=== PATIENT | female | born 1985 | race American Indian/Alaskan Native ===

== ENCOUNTER 2017-12-14 20:16 | Inpatient (IN) | payer OTHER ==
--- NOTE | 2017-12-14 20:25 | ED PDOC ---
Arrival/HPI - General Historian: Patient <Gus Giordano - Last Filed: 12/14/17 23:29> <Korey Lopes - Last Filed: 12/16/17 08:04> - General Time Seen by Provider: 12/14/17 20:19 - History of Present Illness Narrative History of Present Illness (Text): 12/14/17 20:23 32 year old female, pmh including chronic asthma and chronic smoker, nkda, complaining of coughing/fever x 3 days with wheezing started today. Productive coughing, associated with wheezing, feels nauseous with an episode of vomiting with coughing prior to arrival but no abdominal pain, no palpitation , no chest pain, no fever or chills, no neck stiffness, no other medical or psychological complaints. (Gus Giordano) Past Medical History - Provider Review Nursing Documentation Reviewed: Yes <Gus Giordano - Last Filed: 12/14/17 23:29> Family/Social History - Physician Review Nursing Documentation Reviewed: Yes Family/Social History: Unknown Family HX <Gus Giordano - Last Filed: 12/14/17 23:29> Allergies/Home Meds <Gus Giordano - Last Filed: 12/14/17 23:29> <Korey Lopes - Last Filed: 12/16/17 08:04> Allergies/Adverse Reactions: Allergies No Known Allergies Allergy (Verified 12/14/17 20:24) Home Medications: Home Meds Medication Instructions Recorded Confirmed Albuterol HFA [Ventolin HFA 90 1 puff IH PRN PRN 12/15/17 12/15/17 mcg/actuation (8 g)] Review of Systems - Review of Systems Constitutional: absent: Fatigue, Fevers Eyes: absent: Vision Changes ENT: absent: Hearing Changes Respiratory: Cough, Sputum, Wheezing. absent: SOB Cardiovascular: absent: Chest Pain Gastrointestinal: Nausea, Vomiting. absent: Abdominal Pain, Diarrhea Musculoskeletal: absent: Arthralgias, Back Pain Skin: absent: Rash, Pruritis Neurological: absent: Headache Psychiatric: absent: Anxiety, Depression, Suicidal Ideation <Gus Giordano - Last Filed: 12/14/17 23:29> Physical Exam - Systems Exam Head: Present: Atraumatic, Normocephalic Pupils: Present: PERRL Extroacular Muscles: Present: EOMI Conjunctiva: Present: Normal Ears: Present: NORMAL TM, Normal Canal. No: Erythema Mouth: Present: Moist Mucous Membranes Nose (External): Present: Atraumatic. No: Abrasion, Contusion, Laceration, Lesions Nose (Internal): Present: Normal Inspection, No Active Bleeding. No: Rhinorrhea , Septal Hematoma, Epistaxis Neck: Present: Normal Range of Motion, Trachea Midline. No: Meningeal Signs, MIDLINE TENDERNESS, Paraspinal Tenderness, Lymphadenopathy Respiratory/Chest: Present: Wheezes (bilaterally), Decreased Breath Sounds ( bilaterally), Rhonchi (bilaterally), Tachypneic. No: Respiratory Distress, Accessory Muscle Use, Rales, Retracting, Tender to Palpation Cardiovascular: Present: Regular Rate and Rhythm, Normal S1, S2. No: Murmurs Abdomen: No: Tenderness, Distention, Peritoneal Signs, Rebound, Guarding Back: Present: Normal Inspection Upper Extremity: Present: Normal Inspection. No: Cyanosis, Edema Lower Extremity: Present: Normal Inspection. No: Edema Neurological: Present: GCS=15, CN II-XII Intact, Speech Normal Skin: Present: Warm, Dry, Normal Color. No: Rashes Psychiatric: Present: Alert, Oriented x 3, Normal Insight, Normal Concentration <Gus Giordano - Last Filed: 12/14/17 23:29> Vital Signs Temp Pulse Resp BP Pulse Ox 12/14/17 23:58 99.4 F 12/14/17 23:14 100.3 F H 12/14/17 23:00 100.3 F H 122 H 18 130/88 99 12/14/17 20:40 23 97 12/14/17 20:38 98.1 F 112 H 20 143/87 100 Medical Decision Making - RAD Interpretation Marketing Regional Consultant: Radiologist - EKG Interpretation Interpreted by ED Physician: Yes Type: 12 lead EKG Comparison: No previous EKG avail. <Gus Giordano - Last Filed: 12/14/17 23:29> <Korey Lopes - Last Filed: 12/16/17 08:04> ED Course and Treatment: 12/14/17 20:25 -labs/vbg -cxr -ekg -IVF solumedrol/duoneb/magnesium sulfate -observe and reassess 12/14/17 21:23 -code sepsis activated as she fits the criteria: tachycardia/tachpynea/lactic acid 2.3, IV rocephine and azithromycin ordered 12/14/17 22:16 - is negative -EKG: Sinus Tachycardia @ 113 BPM, no ST elevation or depression, no T wave inversion. -cxr No consolidation. -labs show no acute findings but K+ 3.3 (potassium chloride 20meq po ordered), Mg 1.6 (mgsulfate 2gm IV ordered) -Lactic acid 2.4 12/14/17 23:29 -Pt. is febrile 100.3F noted, tylenol 650mg po ordered. -Pt. completed 3 duonebx/125mg solumedrol and 2gm magnesium sulfate, wheezing decrease but still exist with not much symptomatically improved -I spoke to Dr. Mancilla and the medical technical writer about this case, agreed on this admission for observation (Gus Giordano) - Lab Interpretations Microbiology Results: Microbiology Results 12/14/17 21:00 Blood-Venous Blood Culture - Preliminary NO GROWTH AFTER 24 HOURS 12/14/17 20:40 Blood-Venous Blood Culture - Preliminary NO GROWTH AFTER 24 HOURS 12/15/17 01:00 Sputum Gram Stain - Final Lab Results: 12/15/17 06:00 12/15/17 06:00 Lab Results 12/15/17 06:00: Sodium 144, Chloride 108 H, Potassium 4.0, Carbon Dioxide 23, Anion Gap 18, BUN 7, Creatinine 0.7, Est GFR ( Amer) > 60, Est GFR (Non- Af Amer) > 60, Random Glucose 129 H, Calcium 9.0, Total Bilirubin 0.1 L, AST 31 , ALT 22, Alkaline Phosphatase 99, Total Protein 8.5 H, Albumin 3.9, Globulin 4.6, Albumin/Globulin Ratio 0.8 L 12/15/17 06:00: WBC 10.8 D, RBC 3.82, Hgb 11.4 L, Hct 34.9 L, MCV 91.4, MCH 29.8, MCHC 32.7, RDW 12.5, Plt Count 314, MPV 8.6, Gran % 96.3 H, Lymph % (Auto ) 3.1 L, Campbell % (Auto) 0.6 L, Eos % (Auto) 0.0 L, Baso % (Auto) 0.0, Gran # 10.39 H, Lymph # (Auto) 0.3 L, Campbell # (Auto) 0.1, Eos # (Auto) 0.0, Baso # (Auto ) 0.00, Neutrophils % (Manual) 95 H, Lymphocytes % (Manual) 3 L, Monocytes % ( Manual) 2, Platelet Evaluation Normal 12/15/17 00:30: pO2 164 H, VBG pH 7.35, VBG pCO2 40.0, VBG HCO3 22.1, VBG Total CO2 23.3, VBG O2 Sat (Calc) 100.0 H, VBG Base Excess -3.3 L, VBG Potassium 3.2 L , Sodium 139.0, Chloride 105.0, Glucose 134 H, Lactate 4.5 H*, FiO2 21.0, Venous Blood Potassium 3.2 L 12/14/17 21:00: TSH 3rd Generation 1.17 12/14/17 21:00: Procalcitonin 0.14 L 12/14/17 20:59: Sodium 141, Chloride 102, Potassium 3.3 L, Carbon Dioxide 27, Anion Gap 16, BUN 5 L, Creatinine 0.6 L, Est GFR ( Amer) > 60, Est GFR ( Non-Af Amer) > 60, Random Glucose 99, Calcium 9.1, Magnesium 1.6 L, Total Bilirubin 0.2, AST 31, ALT 16, Alkaline Phosphatase 110, Total Protein 9.0 H, Albumin 4.3, Globulin 4.6, Albumin/Globulin Ratio 0.9 L 12/14/17 20:59: pO2 36, VBG pH 7.32, VBG pCO2 58.0, VBG HCO3 29.9 H, VBG Total CO2 31.7 H, VBG O2 Sat (Calc) 68.8 H, VBG Base Excess 2.4 H, VBG Potassium 3.2 L , Sodium 139.0, Chloride 102.0, Glucose 97, Lactate 2.4 H, FiO2 21.0, Venous Blood Potassium 3.2 L 12/14/17 20:59: WBC 7.0, RBC 4.01, Hgb 12.4, Hct 36.2, MCV 90.3, MCH 30.9, MCHC 34.3, RDW 12.0, Plt Count 314, MPV 8.5, Gran % 75.7 H, Lymph % (Auto) 15.8 L, Campbell % (Auto) 5.4, Eos % (Auto) 2.8, Baso % (Auto) 0.3, Gran # 5.31, Lymph # ( Auto) 1.1 L, Campbell # (Auto) 0.4, Eos # (Auto) 0.2, Baso # (Auto) 0.02 - RAD Interpretation Radiology Orders: 12/14/17 20:34 CHEST PORTABLE [RAD] Stat Lungs: Unremarkable. No consolidation. Pleural space: Blunting of the right costophrenic angle could be due to pleural thickening versus small pleural effusion.. No pneumothorax. Heart: Unremarkable. No cardiomegaly. Mediastinum: Unremarkable. Bones/joints: Unremarkable. IMPRESSION: No consolidation. Thank you for allowing us to participate in the care of your patient. Dictated and Authenticated by: Hair Diaz MD 12/14/2017 10:10 PM Eastern Time ([place] & [place]) (Gus Giordano) - EKG Interpretation EKG Interpretation (Text): 12/14/17 20:52 EKG: Sinus Tachycardia @ 113 BPM, no ST elevation or depression, no T wave inversion. (Gus Giordano) - Medication Orders Current Medication Orders: Acetaminophen (Tylenol 325mg Tab) 650 mg PO Q6H PRN PRN Reason: Fever >100.4 F Last Admin: 12/16/17 05:33 Dose: 650 mg MAR Pain/Vitals Document 12/16/17 05:33 FDE (Rec: 12/16/17 05:33 FDE [id number]) Pain Reassessment Is This A Pain ReAssessment? Yes Sleep Is patient sleeping during reassessment? No Presence of Pain Presence of Pain No Amlodipine Besylate (Norvasc) 2.5 mg PO DAILY [facility] Last Admin: 12/15/17 15:00 Dose: 2.5 mg MAR Blood Pressure Document 12/15/17 15:00 [email or web address] (Rec: 12/15/17 15:00 [id number]) Blood Pressure Blood Pressure (100/60-150/90) 158/109 Guaifenesin/Dextromethorphan (Mucinex-Dm 600-30 Mg) 1 tab PO BID [facility] Last Admin: 12/15/17 17:40 Dose: 1 tab Heparin Sodium (Porcine) (Heparin) 5,000 units SC Q12 [facility] PRN Reason: Protocol Last Admin: 12/15/17 21:24 Dose: 5,000 units Subcutaneous Administrations Document 12/15/17 21:24 FDE (Rec: 12/15/17 21:24 FDE [id number]) Charges for Administration # of Subcutaneous Administrations 1 Ceftriaxone Sodium (Rocephin 1 Gram Ivpb) 1 gm in 100 mls @ 100 mls/hr IVPB DAILY JOEL PRN Reason: Protocol Last Admin: 12/15/17 09:26 Dose: 100 mls/hr eMAR Start Stop Document 12/15/17 09:26 [facility] (Rec: 12/15/17 09:26 [id number] Intravenous Solution Start Date 12/15/17 Start Time 09:26 Azithromycin (Zithromax 500mg In Ns) 500 mg in 250 mls @ 167 mls/hr IVPB DAILY JOEL PRN Reason: Protocol Last Admin: 12/15/17 11:16 Dose: 167 mls/hr eMAR Start Stop Document 12/15/17 11:16 [facility] (Rec: 12/15/17 11:16 [id number] Intravenous Solution Start Date 12/15/17 Start Time 11:16 Sodium Chloride (Sodium Chloride 0.9%) 1,000 mls @ 125 mls/hr IV .Q8H [facility] Last Admin: 12/15/17 09:25 Dose: Levalbuterol HCl (Xopenex) 1.25 mg IH [id number] PRN PRN Reason: Shortness of Breath Last Admin: 12/15/17 06:18 Dose: 1.25 mg Levalbuterol HCl (Xopenex) 0.63 mg IH [id number] [facility] Last Admin: 12/16/17 07:29 Dose: 0.63 mg Levalbuterol HCl (Xopenex) 0.63 mg IH Q4H PRN PRN Reason: Shortness of Breath Methylprednisolone (Solu-Medrol) 40 mg IVP DAILY [facility] Last Admin: 12/15/17 09:25 Dose: 40 mg IVP Administration Document 12/15/17 09:25 [facility] (Rec: 12/15/17 09:[id number]) Charges for Administration # of IVP Administrations 1 Pantoprazole Sodium (Protonix Ec Tab) 40 mg PO ACB JOEL Discontinued Medications Acetaminophen (Tylenol 325mg Tab) 650 mg PO STAT STA Stop: 12/14/17 23:08 Last Admin: 12/14/17 23:14 Dose: 650 mg MAR Pain/Vitals Document 12/14/17 23:14 RD (Rec: 12/14/17 23:14 RD [id number]) Pain Reassessment Is This A Pain ReAssessment? No Sleep Is patient sleeping during reassessment? No Presence of Pain Presence of Pain Yes Location Pain Location Body Systems Architecture Analyst Vitals Temperature (97.6 F-99.6 F) 100.3 F Temperature Source Rectal Albuterol/Ipratropium (Duoneb 3 Mg/0.5 Mg (3 Ml) Ud) 3 ml IH Q15M JOEL Stop: 12/14/17 21:16 Last Admin: 12/14/17 21:00 Dose: 3 ml Amlodipine Besylate (Norvasc) 5 mg PO STAT STA Stop: 12/15/17 17:31 Last Admin: 12/15/17 17:39 Dose: 5 mg MAR Pulse and Blood Pressure Document 12/15/17 17:39 [facility] (Rec: 12/15/17 17:40 [id number] Blood Pressure Blood Pressure (100/60-150/90) 160/93 Guaifenesin/Dextromethorphan (Robitussin Dm) 10 ml PO STAT STA Stop: 12/15/17 21:07 Last Admin: 12/15/17 21:24 Dose: 10 ml Sodium Chloride (Sodium Chloride 0.9%) 1,000 mls @ 999 mls/hr IV .Q1H1M STA Stop: 12/14/17 21:34 Last Admin: 12/14/17 20:40 Dose: 999 mls/hr eMAR Start Stop Document 12/14/17 20:40 RD (Rec: 12/14/17 20:58 RD [id number]) Intravenous Solution Start Date 12/14/17 Start Time 20:40 End Date 12/14/17 End time 21:40 Total Infusion Time 60 Azithromycin (Zithromax 500mg In Ns) 500 mg in 250 mls @ 167 mls/hr IVPB STAT STA PRN Reason: Protocol Stop: 12/14/17 22:48 Last Admin: 12/14/17 22:40 Dose: 167 mls/hr eMAR Start Stop Document 12/14/17 22:40 RD (Rec: 12/14/17 22:40 RD [id number]) Intravenous Solution Start Date 12/14/17 Start Time 22:40 End Date 12/15/17 End time 00:10 Total Infusion Time 90 Magnesium Sulfate (Magnesium Sulfate 2 Gm/50 Ml Water) 2 gm in 50 mls @ 50 mls/ hr IVPB ONCE ONE Stop: 12/14/17 22:26 Last Admin: 12/14/17 21:40 Dose: 50 mls/hr eMAR Start Stop Document 12/14/17 21:40 RD (Rec: 12/14/17 21:51 RD [id number]) Intravenous Solution Start Date 12/14/17 Start Time 21:40 End Date 12/14/17 End time 22:40 Total Infusion Time 60 Ceftriaxone Sodium (Rocephin 1 Gram Ivpb) 1 gm in 100 mls @ 100 mls/hr IVPB DAILY JOEL PRN Reason: Protocol Ceftriaxone Sodium (Rocephin 1 Gram Ivpb) 1 gm in 100 mls @ 100 mls/hr IVPB STAT STA PRN Reason: Protocol Stop: 12/14/17 22:32 Last Admin: 12/14/17 21:40 Dose: 100 mls/hr eMAR Start Stop Document 12/14/17 21:40 RD (Rec: 12/14/17 21:50 RD [id number]) Intravenous Solution Start Date 12/14/17 Start Time 21:40 End Date 12/14/17 End time 22:40 Total Infusion Time 60 Lactated Ringer's (Lactated Ringer's) 1,000 mls @ 999 mls/hr IV .Q1H1M JOEL Stop: 12/14/17 23:30 Last Admin: 12/14/17 22:39 Dose: 999 mls/hr eMAR Start Stop Document 12/14/17 22:39 RD (Rec: 12/14/17 22:39 RD [id number]) Intravenous Solution Start Date 12/14/17 Start Time 22:39 End Date 12/14/17 End time 23:39 Total Infusion Time 60 Sodium Chloride 1,000 ml/ IV (SUPPLIES) 1,000 mls @ 4,164 mls/hr IV ONCE ONE PRN Reason: 60 ML/KG/HR Stop: 12/15/17 13:19 Last Admin: 12/15/17 13:53 Dose: 4,164 mls/hr eMAR Start Stop Document 12/15/17 13:53 [facility] (Rec: 12/15/17 13:53 [facility] [id number]- [facility]) Intravenous Solution Start Date 12/15/17 Start Time 13:53 Levalbuterol HCl (Xopenex) 1.25 mg IH STAT STA Stop: 12/14/17 21:43 Last Admin: 12/14/17 22:05 Dose: 1.25 mg Methylprednisolone (Solu-Medrol) 125 mg IVP STAT STA Stop: 12/14/17 20:35 Last Admin: 12/14/17 20:50 Dose: 125 mg IVP Administration Document 12/14/17 20:50 RD (Rec: 12/14/17 20:58 RD [id number]) Charges for Administration # of IVP Administrations 1 Ondansetron HCl (Zofran Inj) 4 mg IVP STAT STA Stop: 12/14/17 21:33 Last Admin: 12/14/17 21:38 Dose: 4 mg IVP Administration Document 12/14/17 21:38 RD (Rec: 12/14/17 21:38 RD [id number]) Charges for Administration # of IVP Administrations 1 Pantoprazole Sodium (Protonix Inj) 40 mg IVP DAILY [facility] Last Admin: 12/15/17 09:23 Dose: 40 mg IVP Administration Document 12/15/17 09:23 [facility] (Rec: 12/15/17 09:[address]-[id number]- PC) Charges for Administration # of IVP Administrations 1 Potassium Chloride (K-Dur 20 Meq Er Tab) 20 meq PO STAT STA Stop: 12/14/17 22:16 Last Admin: 12/14/17 22:39 Dose: 20 meq Potassium Chloride (K-Dur 20 Meq Er Tab) 20 meq PO ONCE ONE Stop: 12/16/17 06:59 Last Admin: 12/16/17 07:07 Dose: 20 meq - PA / MOTOR BUILDER ASSEMBLER / Resident Statement MARGARITA has reviewed & agrees with the documentation as recorded. MARGARITA has examined the patient and agrees with the treatment plan. <Gus Giordano - Last Filed: 12/14/17 23:29> - PA / MOTOR BUILDER ASSEMBLER / Resident Statement MARGARITA has reviewed & agrees with the documentation as recorded. <Korey Lopes - Last Filed: 12/16/17 08:04> Disposition/Present on Arrival - Present on Arrival Any Indicators Present on Arrival: No History of DVT/PE: No History of Uncontrolled Diabetes: No Urinary Catheter: No History of Decub. Ulcer: No - Disposition Have Diagnosis and Disposition been Completed?: Yes Disposition Time: 23:50 Patient Plan: Admission <Gus Giordano - Last Filed: 12/14/17 23:29> <Korey Lopes - Last Filed: 12/16/17 08:04> - Disposition Diagnosis: Bronchitis, Status asthmaticus, Sepsis Disposition: HOSPITALIZED Patient Problems: Current Active Problems Problem Status Onset Bronchitis Acute Sepsis Acute Status asthmaticus Acute Condition: FAIR
[2017-12-14] MEDS: Albuterol-Ipratrop 3 mg / 0.5 (3 ml) UD IH SCH ×3 (20:30→21:00)
[2017-12-14] MEDS ORDERED: Sodium Chloride 0.9% 1,000 ML IV STA (20:34)
[2017-12-14 21:09] LABS: VENOUS BLOOD GAS BASE EXCESS 2.4 mmol/L (0.0-2.0); VENOUS BLOOD GAS PO2 36 mm/Hg (30-55); VENOUS BLOOD PH 7.32 (7.32-7.43)
[2017-12-14 21:15] LABS: ALB/GLOB RATIO 0.9 (1.1-1.8)
[2017-12-14] MEDS ORDERED: cefTRIAXone 1 gm 1 GM/100 ML BAG IVPB STA ×2 (21:19→21:33)
[2017-12-14] MEDS ORDERED: Azithromycin 500MG/NS 250ml 500 MG/250 ML BAG IVPB STA (21:19)
[2017-12-14 21:20] LABS: ALBUMIN 4.3 g/dL (3.0-4.8); ALT/SGPT 16 U/L (7-56); AST/SGOT 31 U/L (14-36); BLOOD UREA NITROGEN 5 mg/dL (7-21); CALCIUM 9.1 mg/dL (8.4-10.5); GFR AFRICAN-AMERICAN > 60; GFR NON-AFRICAN AMERICAN > 60
[2017-12-14 21:27] LABS: BASO # 0.02 K/mm3 (0.0-2.0); BASO % 0.3 % (0.0-3.0); EOS # 0.2 (0.0-0.7); EOS % 2.8 % (1.5-5.0); GRAN # 5.31 (1.4-6.5); GRAN % 75.7 % (50.0-68.0); HEMOGLOBIN 12.4 g/dL (12.0-16.0); LYMPH # 1.1 (1.2-3.4); LYMPH % 15.8 % (22.0-35.0); MEAN CELL VOLUME 90.3 fl (80.0-105.0); MEAN CORPUSCULAR HEMOGLOBIN 30.9 pg (25.0-35.0); MEAN CORPUSCULAR HGB CONC 34.3 g/dl (31.0-37.0); MEAN PLATELET VOLUME 8.5 fl (7.0-11.0); MONO # 0.4 (0.1-0.6); MONO % 5.4 % (1.0-6.0); RBC 4.01 10^6/uL (3.5-6.1)
[2017-12-14] MEDS ORDERED: Magnesium Sulfate 2 gm/50 ml 2 GM/50 ML BAG IVPB ONE (21:27)
[2017-12-14] MEDS ORDERED: Albuterol-Ipratrop 3 mg / 0.5 (3 ml) UD IH SCH (21:30)
[2017-12-14] MEDS ORDERED: Levalbuterol 1.25 MG/3 ML Inhal Soln UD IH STA (21:42)
[2017-12-14] MEDS ORDERED: Potassium Chloride 20 mEq ER Tab PO STA (22:15)
[2017-12-14] MEDS ORDERED: Lactated Ringer's 1,000 ML IV SCH (22:30)
--- NOTE | 2017-12-15 00:02 | CP.PCM.HP ---
History of Present Illness - History of Present Illness History of Present Illness: 32 year old female with a past medical history of asthma and seizures comes in today complaining of shortness of breath and wheezing that began this morning. The patient states she was resting when she began to get short of breath. She reports taking her albuterol pump with no improvement in symptoms. Patient states she has to use her albuterol pump daily and wake up from her sleep nightly with shortness of breath. She denies any chest pain, shortness of breath, fevers, chills, nausea, vomiting, dizziness, changes in vision, syncopal episodes or any other complaints. Patient alerted me prior to questioning her to not ask certain questions in front of her boyfriend. PMD: Denies Past medical history: Asthma, seizures Medications: Albuterol pump Allergies: Denies Surgeries: C section Present on Admission - Present on Admission Any Indicators Present on Admission: No Review of Systems - Constitutional Constitutional: absent: Daytime Sleepiness, Frequent Falls, Headache, Snoring - EENT Eyes: absent: Blurred Vision, Loss of Peripheral Vision Ears: absent: Ear Discharge, Dizziness Nose/Mouth/Throat: absent: Nose Pain, Bleeding Gums, Mouth Pain, Facial Pain - Cardiovascular Cardiovascular: absent: Chest Pain, Claudication, Irregular Heart Rhythm, Palpitations, Pedal Edema, Syncope - Respiratory Respiratory: Cough, Wheezing. absent: Dyspnea, Hemoptysis, Snoring, Stridor, Pain on Inspiration - Gastrointestinal Gastrointestinal: absent: Belching, Diarrhea, Fecal Incontinence, Loose Stools, Vomiting - Menstruation Menstruation: absent: Menses Variable - Neurological Neurological: absent: Abnormal Hearing, Behavioral Changes, Dizziness, Lack of Coordination, Loss of Vision, Radicular Pain, Restless Legs, Tingling, Tremor, Vertigo - Psychiatric Psychiatric: absent: Anhedonia, Anxiety, Depression, Difficulty Concentrating, Hopelessness, Panic Attacks - Endocrine Endocrine: absent: Polydipsia, Polyphagia, Polyuria - Hematologic/Lymphatic Hematologic: absent: Easy Bleeding, Easy Bruising Past Patient History - Past Social History Smoking Status: Heavy Smoker > 10 Cigarettes Daily - PULMONARY Hx Asthma: Yes - PSYCHIATRIC Hx Substance Use: No - ANESTHESIA Hx Anesthesia: Yes Hx Anesthesia Reactions: No Hx Malignant Hyperthermia: No Meds Allergies/Adverse Reactions: Allergies Allergy/AdvReac Type Severity Reaction Status Date / Time No Known Allergies Allergy Verified 12/14/17 20:24 Physical Exam - Head Exam Head Exam: ATRAUMATIC, NORMAL INSPECTION, NORMOCEPHALIC - Eye Exam Eye Exam: EOMI, Normal appearance, PERRL Pupil Exam: NORMAL ACCOMODATION, PERRL - ENT Exam ENT Exam: Mucous Membranes Moist, Normal Oropharynx - Neck Exam Neck exam: Negative for: Lymphadenopathy, Meningismus - Respiratory Exam Respiratory Exam: Wheezes, NORMAL BREATHING PATTERN. absent: Prolonged Expiratory Phase, Rales, Respiratory Distress - Cardiovascular Exam Cardiovascular Exam: REGULAR RHYTHM, +S1, +S2 - GI/Abdominal Exam GI & Abdominal Exam: Normal Bowel Sounds, Soft. absent: Organomegaly, Tenderness - Extremities Exam Extremities exam: Positive for: full ROM, normal inspection. Negative for: joint swelling, pedal edema - Back Exam Back exam: NORMAL INSPECTION. absent: CVA tenderness (R), paraspinal tenderness - Neurological Exam Neurological exam: Alert, CN II-XII Intact, Oriented x3 - Psychiatric Exam Psychiatric exam: Normal Affect, Normal Mood - Skin Skin Exam: Dry, Intact, Normal Color Results - Vital Signs Recent Vital Signs: Last Vital Signs Temp 99.4 F 12/14/17 23:58 Pulse 122 H 12/14/17 23:00 Resp 18 12/14/17 23:00 BP 130/88 12/14/17 23:00 Pulse Ox 99 12/14/17 23:00 - Labs Result Diagrams: 12/15/17 06:00 12/15/17 06:00 Assessment & Plan - Assessment and Plan (Free Text) Assessment: 32 year old female with a past medical history of asthma and seizures admitted for status asthmaticus. Plan: 1. Asthma exacerbation -Duonebs -IV solumedrol 2.Septic 2/2 to ?Pna -Code sepsis called in the E.D. -Patient reports cough and phlegm production -Motley cultures. Will f/u with results. -Pro macario ordered. Will f/u with results. -Tylenol 650mg PRN for fever >100.4 -IV Zithromax and Rocephin -IV fluids 3. hx of seizures -Patient reports over 8 years without having a seizure -Currently not on medication regimen. -Will monitor PPX -Heparin -Protonix Case discussed with Dr. Mancilla. Yariel Castano PGY-1
[2017-12-15 01:06] LABS: VENOUS BLOOD GAS BASE EXCESS -3.3 mmol/L (0.0-2.0); VENOUS BLOOD GAS PO2 164 mm/Hg (30-55); VENOUS BLOOD PH 7.35 (7.32-7.43)
[2017-12-15] MEDS: Sodium Chloride 0.9% 1,000 ML IV SCH ×2 (01:15→09:25)
[2017-12-15] MEDS: Levalbuterol 1.25 MG/3 ML Inhal Soln UD IH PRN ×2 (01:18→06:18)
[2017-12-15 01:46] VITALS: BMI 30.7
[2017-12-15] MEDS ORDERED: Albuterol-Ipratrop 3 mg / 0.5 (3 ml) UD IH SCH (03:30)
--- NOTE | 2017-12-15 05:22 | PCM.SEPTIC ---
Sepsis Progress Note - Reassessment Type Date of Evaluation: 12/15/17 Time of Evaluation: 04:00 Reassessment Type: Non-invasive reassessment - Non Invasive Reassessment Were the most recent vital sign reviewed: Yes Vital Sign (Latest): Temp Pulse Resp BP Pulse Ox 98.9 F 104 H 22 131/79 98 12/15/17 00:47 12/15/17 04:48 12/15/17 00:47 12/15/17 00:47 12/15/17 00:18 Cardiovascular: Yes: Regular Rate, Rhythm, Tachycardia. No: Bradycardia, Other Respiratory: No: Decreased Breath Sounds, Stridor Capillary Refill: Normal (Less than 2 sec) Skin: Normal Color, Warm <Yariel Castano - Last Filed: 12/15/17 05:20> - Non Invasive Reassessment Vital Sign (Latest): Temp Pulse Resp BP Pulse Ox 98.1 F 105 H 20 143/88 96 12/15/17 05:53 12/15/17 05:53 12/15/17 05:53 12/15/17 05:53 12/15/17 05:53 <Ayde Mancilla - Last Filed: 12/15/17 06:12> Attending/Attestation - Attestation I have personally seen and examined this patient.: Yes I have fully participated in the care of the patient.: Yes I have reviewed all pertinent clinical information, including history, physical exam and plan: Yes Notes (Text): 12/15/17 06:12 Patient was seen when she was in bed # 18 in the ER. Agree with history, physical examination, assessment and plan. <Ayde Mancilla - Last Filed: 12/15/17 06:12>
[2017-12-15 05:54] VITALS: RESP 20
[2017-12-15 07:03] LABS: GRAN # 10.39 (1.4-6.5); GRAN % 96.3 % (50.0-68.0); HEMOGLOBIN 11.4 g/dL (12.0-16.0); LYMPH # 0.3 (1.2-3.4); LYMPH % 3.1 % (22.0-35.0); MEAN CELL VOLUME 91.4 fl (80.0-105.0); MEAN CORPUSCULAR HEMOGLOBIN 29.8 pg (25.0-35.0); MEAN CORPUSCULAR HGB CONC 32.7 g/dl (31.0-37.0); MEAN PLATELET VOLUME 8.6 fl (7.0-11.0); MONO # 0.1 (0.1-0.6); MONO % 0.6 % (1.0-6.0); PLATELET COUNT 314 10^3/uL (120.0-450.0); RBC 3.82 10^6/uL (3.5-6.1); RED CELL DISTRIBUTION WIDTH 12.5 % (11.5-14.5); WHITE BLOOD COUNT 10.8 10^3/ul (4.5-11.0)
[2017-12-15 07:13] LABS: ALB/GLOB RATIO 0.8 (1.1-1.8); ALBUMIN 3.9 g/dL (3.0-4.8); ALT/SGPT 22 U/L (7-56); AST/SGOT 31 U/L (14-36); BLOOD UREA NITROGEN 7 mg/dL (7-21); GFR AFRICAN-AMERICAN > 60; GFR NON-AFRICAN AMERICAN > 60
[2017-12-15 08:00] LABS: LYMPHOCYTE 3 % (22.0-35.0); MONOCYTE 2 % (1.0-6.0); NEUTROPHIL 95 % (50.0-70.0); PLATELET ESTIMATE NORMAL (NORMAL)
--- NOTE | 2017-12-15 09:12 | RAD ---
HISTORY: medical clearance COMPARISON: No prior. FINDINGS: LUNGS: No active pulmonary disease. PLEURA: No significant pleural effusion identified, no pneumothorax apparent. CARDIOVASCULAR: Normal. OSSEOUS STRUCTURES: No significant abnormalities. VISUALIZED UPPER ABDOMEN: Normal. OTHER FINDINGS: The report concurs with the preliminary [facility] report IMPRESSION: No active disease.
[2017-12-15] MEDS: guaiFENesin-DM 600-30 mg ER Tab PO SCH ×2 (09:23→17:40)
[2017-12-15] MEDS: MethylPREDNISolone 40 mg Vial IVP SCH (09:25)
[2017-12-15] MEDS: cefTRIAXone 1 gm 1 GM/100 ML BAG IVPB SCH (09:26)
[2017-12-15] MEDS ORDERED: cefTRIAXone 1 gm 1 GM/100 ML BAG IVPB SCH (10:00)
[2017-12-15] MEDS ORDERED: Levalbuterol 0.63 MG/3 ML Inhal Soln UD IH PRN (10:28)
[2017-12-15] MEDS: Azithromycin 500MG/NS 250ml 500 MG/250 ML BAG IVPB SCH (11:16)
[2017-12-15] MEDS: Levalbuterol 0.63 MG/3 ML Inhal Soln UD IH SCH ×2 (13:36→19:47)
--- NOTE | 2017-12-15 16:37 | CARD ---
APPROVED REPORT EKG Measurement Heart [id number] PA [id number] <Conclusion> Sinus tachycardia Otherwise normal ECG
[2017-12-15] MEDS ORDERED: guaiFENesin DM 200 mg-20 mg/10 ml UD PO STA (21:06)
[2017-12-15 23:50] VITALS: O2SAT 95
[2017-12-16] MEDS: Levalbuterol 0.63 MG/3 ML Inhal Soln UD IH SCH ×2 (01:52→07:29)
[2017-12-16 06:25] LABS: EOS % 0.3 % (1.5-5.0); GRAN # 7.93 (1.4-6.5); GRAN % 78.4 % (50.0-68.0); HEMOGLOBIN 10.5 g/dL (12.0-16.0); LYMPH # 1.4 (1.2-3.4); MEAN CELL VOLUME 91.8 fl (80.0-105.0); MEAN CORPUSCULAR HEMOGLOBIN 29.6 pg (25.0-35.0); MEAN CORPUSCULAR HGB CONC 32.2 g/dl (31.0-37.0); MEAN PLATELET VOLUME 8.6 fl (7.0-11.0); MONO # 0.7 (0.1-0.6); MONO % 7.3 % (1.0-6.0); RBC 3.55 10^6/uL (3.5-6.1); RED CELL DISTRIBUTION WIDTH 12.7 % (11.5-14.5); WHITE BLOOD COUNT 10.1 10^3/ul (4.5-11.0)
[2017-12-16 06:36] LABS: ALB/GLOB RATIO 0.9 (1.1-1.8); ALBUMIN 3.7 g/dL (3.0-4.8); ALT/SGPT 20 U/L (7-56); AST/SGOT 28 U/L (14-36); BLOOD UREA NITROGEN 8 mg/dL (7-21); GFR AFRICAN-AMERICAN > 60; GFR NON-AFRICAN AMERICAN > 60
[2017-12-16] MEDS ORDERED: Potassium Chloride 20 mEq ER Tab PO ONE (06:58)
[2017-12-16] MEDS ORDERED: Pantoprazole 40 mg EC Tab PO SCH (07:30)
[2017-12-16 08:08] LABS: VENOUS BLOOD GAS BASE EXCESS 6.4 mmol/L (0.0-2.0); VENOUS BLOOD GAS PO2 75 mm/Hg (30-55); VENOUS BLOOD PH 7.48 (7.32-7.43)
[2017-12-16] MEDS: guaiFENesin-DM 600-30 mg ER Tab PO SCH (10:05)
[2017-12-16] MEDS: MethylPREDNISolone 40 mg Vial IVP SCH (10:05)
[2017-12-16] MEDS: Azithromycin 500MG/NS 250ml 500 MG/250 ML BAG IVPB SCH (10:06)
[2017-12-16] MEDS: cefTRIAXone 1 gm 1 GM/100 ML BAG IVPB SCH (10:06)
[2017-12-16 12:31] VITALS: BP 142/102; TEMP 97.9
[2017-12-16 14:30] VITALS: PULSE 75
--- NOTE | 2017-12-16 14:41 | CP.PCM.DIS ---
<RachelleSarkis - Last Filed: 12/16/17 14:41> Provider - Provider Date of Admission: 12/15/17 13:53 Attending physician: Cheng Peng MD Primary care physician: NO FAMILY PROVIDER Time Spent in preparation of Discharge (in minutes): 35 Diagnosis - Discharge Diagnosis (1) Bronchitis Status: Acute (2) Sepsis Status: Resolved (3) Status asthmaticus Status: Resolved Hospital Course - Lab Results Lab Results: Most Recent Lab Values WBC 10.1 10^3/ul (4.5-11.0) 12/16/17 05:45 RBC 3.55 10^6/uL (3.5-6.1) 12/16/17 05:45 Hgb 10.5 g/dL (12.0-16.0) L 12/16/17 05:45 Hct 32.6 % (36.0-48.0) L 12/16/17 05:45 MCV 91.8 fl (80.0-105.0) 12/16/17 05:45 MCH 29.6 pg (25.0-35.0) 12/16/17 05:45 MCHC 32.2 g/dl (31.0-37.0) 12/16/17 05:45 RDW 12.7 % (11.5-14.5) 12/16/17 05:45 Plt Count 298 10^3/uL (120.0-450.0) 12/16/17 05:45 MPV 8.6 fl (7.0-11.0) 12/16/17 05:45 Gran % 78.4 % (50.0-68.0) H 12/16/17 05:45 Lymph % (Auto) 14.0 % (22.0-35.0) L 12/16/17 05:45 Bates % (Auto) 7.3 % (1.0-6.0) H 12/16/17 05:45 Eos % (Auto) 0.3 % (1.5-5.0) L 12/16/17 05:45 Baso % (Auto) 0.0 % (0.0-3.0) 12/16/17 05:45 Gran # 7.93 (1.4-6.5) H 12/16/17 05:45 Lymph # (Auto) 1.4 (1.2-3.4) 12/16/17 05:45 Bates # (Auto) 0.7 (0.1-0.6) H 12/16/17 05:45 Eos # (Auto) 0.0 (0.0-0.7) 12/16/17 05:45 Baso # (Auto) 0.00 K/mm3 (0.0-2.0) 12/16/17 05:45 Neutrophils % (Manual) 95 % (50.0-70.0) H 12/15/17 06:00 Lymphocytes % (Manual) 3 % (22.0-35.0) L 12/15/17 06:00 Monocytes % (Manual) 2 % (1.0-6.0) 12/15/17 06:00 Platelet Evaluation Normal (NORMAL) 12/15/17 06:00 pO2 75 mm/Hg (30-55) H 12/16/17 07:40 VBG pH 7.48 (7.32-7.43) H 12/16/17 07:40 VBG pCO2 41.0 (40-60) 12/16/17 07:40 VBG HCO3 30.5 mmol/l (21-28) H 12/16/17 07:40 VBG Total CO2 31.8 mmol.L (22-28) H 12/16/17 07:40 VBG O2 Sat (Calc) 98.1 % (40-65) H 12/16/17 07:40 VBG Base Excess 6.4 mmol/L (0.0-2.0) H 12/16/17 07:40 VBG Potassium 3.6 mmol/L (3.6-5.2) 12/16/17 07:40 Sodium 139.0 mmol/L (132-148) 12/16/17 07:40 Chloride 106.0 mmol/L (98-107) 12/16/17 07:40 Glucose 105 mg/dl (65-105) 12/16/17 07:40 Lactate 1.0 mmol/L (0.7-2.1) 12/16/17 07:40 FiO2 21.0 % 12/16/17 07:40 Sodium 141 mmol/L (132-148) 12/16/17 05:45 Potassium 3.4 mmol/L (3.6-5.0) L 12/16/17 05:45 Chloride 104 mmol/L (98-107) 12/16/17 05:45 Carbon Dioxide 27 mmol/L (21-33) 12/16/17 05:45 Anion Gap 14 (10-20) 12/16/17 05:45 BUN 8 mg/dL (7-21) 12/16/17 05:45 Creatinine 0.7 mg/dl (0.7-1.2) 12/16/17 05:45 Est GFR ( Amer) > 60 12/16/17 05:45 Est GFR (Non-Af Amer) > 60 12/16/17 05:45 Random Glucose 139 mg/dL (70-110) H 12/16/17 05:45 Lactic Acid 0.8 mmol/L (0.7-2.1) 12/15/17 16:30 Calcium 9.0 mg/dL (8.4-10.5) 12/16/17 05:45 Magnesium 1.6 mg/dL (1.7-2.2) L 12/14/17 20:59 Total Bilirubin 0.1 mg/dL (0.2-1.3) L 12/16/17 05:45 AST 28 U/L (14-36) 12/16/17 05:45 ALT 20 U/L (7-56) 12/16/17 05:45 Alkaline Phosphatase 97 U/L (38-126) 12/16/17 05:45 Total Protein 7.9 g/dL (5.8-8.3) 12/16/17 05:45 Albumin 3.7 g/dL (3.0-4.8) 12/16/17 05:45 Globulin 4.3 gm/dL 12/16/17 05:45 Albumin/Globulin Ratio 0.9 (1.1-1.8) L 12/16/17 05:45 Procalcitonin 0.09 NG/ML (0.19-0.49) L 12/15/17 16:30 TSH 3rd Generation 1.17 mIU/mL (0.46-4.68) 12/14/17 21:00 Venous Blood Potassium 3.6 mmol/L (3.6-5.2) 12/16/17 07:40 - Hospital Course Hospital Course: 32 year old female with past medical history of asthma, 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 Patient was evaluated and admitted for asthma exacerbation. Patient was given IV steroids, xopenex breathing treatments and placed on telemetry unit. While being admitted patient was noted to have acute elevation of lactic acid on venous blood gas of 4.1. Sepsis protocol was conducted and patient was given 30mL/kg and reevaluated. Patient responded to fluids was noted to have lactic acid within normal levels. Patient sputum culture and blood cultures were negative. Patient was discharged on Levaquin PO for 3 days. Patient reported being HIV positive during admission. Patient was encouraged to alert her partner of her HIV status. Patient reported she would inform her partner and past partners of her HIV status. Patient was referred to HIV clinic at [facility] for continued outpatient follow up for her disease. Discharge planning including outpatient follow up, medication reconciliation, signs and symptoms to be concerned for were discussed with patient and safe sex practices were discussed with patient. Patient was agreeable and understanding. See chart for full details. - Date & Time of H&P Date of H&P: 12/15/17 Time of H&P: 01:02 Discharge Exam - Head Exam Head Exam: ATRAUMATIC, NORMAL INSPECTION, NORMOCEPHALIC - Eye Exam Eye Exam: EOMI, PERRL - ENT Exam ENT Exam: Mucous Membranes Moist - Neck Exam Neck exam: Full Rom - Respiratory Exam Respiratory Exam: Wheezes (minimal, improved from admission), NORMAL BREATHING PATTERN. absent: Rales, Rhonchi - Cardiovascular Exam Cardiovascular Exam: REGULAR RHYTHM, +S1, +S2 - GI/Abdominal Exam GI & Abdominal Exam: Normal Bowel Sounds, Soft. absent: Guarding, Rigid, Tenderness - Extremities Exam Extremities exam: normal capillary refill, pedal pulses present - Back Exam Back exam: absent: CVA tenderness (L), CVA tenderness (R), paraspinal tenderness , vertebral tenderness - Neurological Exam Neurological exam: Alert, CN II-XII Intact, Normal Gait, Oriented x3, Reflexes Normal - Psychiatric Exam Psychiatric exam: Normal Affect, Normal Mood - Skin Skin Exam: Dry, Warm Discharge Plan - Discharge Medications Prescriptions: Albuterol HFA [Ventolin HFA 90 mcg/actuation (8 g)] 1 puff IH Q6H PRN #1 inhaler PRN Reason: Wheezing amLODIPine [Norvasc] 5 mg PO DAILY #30 tab Budesonide/Formoterol Fumarate [Symbicort] 1 aer IH BID #1 aer guaiFENesin/Dextromethorphan [Mucinex-DM 600-30 mg] 1 tab PO BID #14 tab Levofloxacin [Levaquin] 500 mg PO DAILY #3 tablet predniSONE [predniSONE Tab] See Taper PO DAILY #12 tab - Follow Up Plan Condition: FAIR Disposition: HOME/ ROUTINE Instructions: Smoking: Not Just Harmful to Your Lungs and Heart, Asthma, Adult (DC), High Blood Pressure (DC), Avoiding Asthma Triggers, Controlling Your Blood Pressure Through Lifestyle, Quitting Smoking, Drugs to Help You Stop Using Tobacco, Sepsis (DC) Additional Instructions: Take medications as prescribed to you Follow up with [facility] health clinic, number is [phone]. Please call and make appointment. Follow up with HIV Clinic at [facility] [phone] [place] [address] [facility] Referrals: [facility], [Non-Staff] - FAMILY PROVIDER,NO [Primary Care Provider] - <Cheng Peng - Last Filed: 12/16/17 15:08> Provider - Provider Date of Admission: 12/15/17 13:53 Attending physician: Cheng Peng MD Primary care physician: NO FAMILY PROVIDER Hospital Course - Lab Results Lab Results: Most Recent Lab Values WBC 10.1 10^3/ul (4.5-11.0) 12/16/17 05:45 RBC 3.55 10^6/uL (3.5-6.1) 12/16/17 05:45 Hgb 10.5 g/dL (12.0-16.0) L 12/16/17 05:45 Hct 32.6 % (36.0-48.0) L 12/16/17 05:45 MCV 91.8 fl (80.0-105.0) 12/16/17 05:45 MCH 29.6 pg (25.0-35.0) 12/16/17 05:45 MCHC 32.2 g/dl (31.0-37.0) 12/16/17 05:45 RDW 12.7 % (11.5-14.5) 12/16/17 05:45 Plt Count 298 10^3/uL (120.0-450.0) 12/16/17 05:45 MPV 8.6 fl (7.0-11.0) 12/16/17 05:45 Gran % 78.4 % (50.0-68.0) H 12/16/17 05:45 Lymph % (Auto) 14.0 % (22.0-35.0) L 12/16/17 05:45 Bates % (Auto) 7.3 % (1.0-6.0) H 12/16/17 05:45 Eos % (Auto) 0.3 % (1.5-5.0) L 12/16/17 05:45 Baso % (Auto) 0.0 % (0.0-3.0) 12/16/17 05:45 Gran # 7.93 (1.4-6.5) H 12/16/17 05:45 Lymph # (Auto) 1.4 (1.2-3.4) 12/16/17 05:45 Bates # (Auto) 0.7 (0.1-0.6) H 12/16/17 05:45 Eos # (Auto) 0.0 (0.0-0.7) 12/16/17 05:45 Baso # (Auto) 0.00 K/mm3 (0.0-2.0) 12/16/17 05:45 Neutrophils % (Manual) 95 % (50.0-70.0) H 12/15/17 06:00 Lymphocytes % (Manual) 3 % (22.0-35.0) L 12/15/17 06:00 Monocytes % (Manual) 2 % (1.0-6.0) 12/15/17 06:00 Platelet Evaluation Normal (NORMAL) 12/15/17 06:00 pO2 75 mm/Hg (30-55) H 12/16/17 07:40 VBG pH 7.48 (7.32-7.43) H 12/16/17 07:40 VBG pCO2 41.0 (40-60) 12/16/17 07:40 VBG HCO3 30.5 mmol/l (21-28) H 12/16/17 07:40 VBG Total CO2 31.8 mmol.L (22-28) H 12/16/17 07:40 VBG O2 Sat (Calc) 98.1 % (40-65) H 12/16/17 07:40 VBG Base Excess 6.4 mmol/L (0.0-2.0) H 12/16/17 07:40 VBG Potassium 3.6 mmol/L (3.6-5.2) 12/16/17 07:40 Sodium 139.0 mmol/L (132-148) 12/16/17 07:40 Chloride 106.0 mmol/L (98-107) 12/16/17 07:40 Glucose 105 mg/dl (65-105) 12/16/17 07:40 Lactate 1.0 mmol/L (0.7-2.1) 12/16/17 07:40 FiO2 21.0 % 12/16/17 07:40 Sodium 141 mmol/L (132-148) 12/16/17 05:45 Potassium 3.4 mmol/L (3.6-5.0) L 12/16/17 05:45 Chloride 104 mmol/L (98-107) 12/16/17 05:45 Carbon Dioxide 27 mmol/L (21-33) 12/16/17 05:45 Anion Gap 14 (10-20) 12/16/17 05:45 BUN 8 mg/dL (7-21) 12/16/17 05:45 Creatinine 0.7 mg/dl (0.7-1.2) 12/16/17 05:45 Est GFR ( Amer) > 60 12/16/17 05:45 Est GFR (Non-Af Amer) > 60 12/16/17 05:45 Random Glucose 139 mg/dL (70-110) H 12/16/17 05:45 Lactic Acid 0.8 mmol/L (0.7-2.1) 12/15/17 16:30 Calcium 9.0 mg/dL (8.4-10.5) 12/16/17 05:45 Magnesium 1.6 mg/dL (1.7-2.2) L 12/14/17 20:59 Total Bilirubin 0.1 mg/dL (0.2-1.3) L 12/16/17 05:45 AST 28 U/L (14-36) 12/16/17 05:45 ALT 20 U/L (7-56) 12/16/17 05:45 Alkaline Phosphatase 97 U/L (38-126) 12/16/17 05:45 Total Protein 7.9 g/dL (5.8-8.3) 12/16/17 05:45 Albumin 3.7 g/dL (3.0-4.8) 12/16/17 05:45 Globulin 4.3 gm/dL 12/16/17 05:45 Albumin/Globulin Ratio 0.9 (1.1-1.8) L 12/16/17 05:45 Procalcitonin 0.09 NG/ML (0.19-0.49) L 12/15/17 16:30 TSH 3rd Generation 1.17 mIU/mL (0.46-4.68) 12/14/17 21:00 Venous Blood Potassium 3.6 mmol/L (3.6-5.2) 12/16/17 07:40 Attending/Attestation - Attestation I have personally seen and examined this patient.: Yes I have fully participated in the care of the patient.: Yes I have reviewed all pertinent clinical information, including history, physical exam and plan: Yes Notes (Text): 12/16/17 15:01 Medical record note made by the resident after discussion with my direction and input after the patient was personally seen and examined by me. I have reviewed the chart and agree that the record accurately reflects by personal performance of the history, physical exam, data review, and medical decision-making, in the course for the patient. I have also personally directed the plan of care. 32 year old female with past medical history of asthma, HIV and non compliance with medication was admitted with acute asthma exacerbation, has improved with Neb/Steroid and antibiotics. Lactic acid was high at the time of admission, patient was given IV fluid and lactic acid has come back to normal.Patient is afebrile, there is no evidence of infection.Procalcitonin level is normal.LFT are normal.Patient abdominal examination is benign and has good peripheral pulse.Patient will be discharged home on Albuterol/Steroid inhaler , tapering dose of Prednisone and levofloxacin. Management plan was discussed in detail with patient. Education was provided. 12/16/17 15:07
[2017-12-17] MEDS ORDERED: Cefpodoxime (Vantin) 200 mg Tab PO SCH (10:00)
== END 2017-12-16 14:58 | disposition home or self-care (01) | DRG 588 ==
LOC: ED 20:16 → ERH 22:59 → 2RSO 12-15 00:38 → OBSVTOIN 12-15 13:53
PROVIDERS: ADMIT Internal Medicine; ATTEND Internal Medicine
DX: J45.902 Unspecified asthma with status asthmaticus (principal); A41.9 Sepsis, unspecified organism; Z21 Asymptomatic human immunodeficiency virus [HIV] infection status; R56.9 Unspecified convulsions; F17.210 Nicotine dependence, cigarettes, uncomplicated; Z91.14 Patient's other noncompliance with medication regimen